=== PATIENT | female | born 1955 | race Caucasian/White ===

== ENCOUNTER → 2020-10-01 10:58 | Outpatient (CLI) | payer MEDICARE, SELFPAY ==
--- NOTE | ~2020-10-01 | DEXA_ITS ---
Bone Density Report Name: María Salvador Age: 65 Sex: Female Ethnicity: White Date of : 1955 Indication: postmenopausal osteoporosis; height loss; prior fracture; Referring Provider: JESUS MANUEL, [facility] Study: Bone densitometry was performed. Exam Date: October 01, 2020 Accession number: [id number] Bone Density: Region BMD T-score Z-score Classification AP Spine (L1-L4) 0.592 -4.1 -2.2 Osteoporosis Femoral Neck (Left) 0.449 -3.6 -1.9 Osteoporosis Total Hip (Left) 0.587 -2.9 -1.5 Osteoporosis Femoral Neck (Right) 0.465 -3.5 -1.8 Osteoporosis Total Hip (Right) 0.556 -3.2 -1.8 Osteoporosis Total Hip Mean 0.572 -3.1 -1.7 Osteoporosis World Health Organization criteria for BMD impression classify patients as: Normal (T-score at or above -1.0), Osteopenia (T-score between -1.0 and -2.5), or Osteoporosis (T-score at or below -2.5). 10-year Fracture Risk: FRAX not reported because: Some T-score for Spine Total or Hip Total or Femoral Neck at or below -2.5 Prior hip or vertebral fracture Previous Exams: Region Exam Age BMD T-score BMD Change BMD Change Date g/cm2 vs Baseline vs Previous AP Spine(L1-L4) 10/01/2020 65 0.592 -4.1 -0.094* -0.055* 04/15/2019 64 0.647 -3.6 -0.040* -0.040* 03/20/2017 62 0.686 -3.3 Total Hip(Left) 10/01/2020 65 0.587 -2.9 -0.107* 0.023 04/15/2019 64 0.565 -3.1 -0.130* -0.130* 03/20/2017 62 0.695 -2.0 Total Hip(Right) 10/01/2020 65 0.556 -3.2 -0.187* 0.024 04/15/2019 64 0.532 -3.4 -0.212* -0.212* 03/20/2017 62 0.743 -1.6 *Denotes significance at 95% confidence level, LSC for AP Spine = 0.022 g/cm2, LSC for Total Hip = 0.027 g/cm2 Clinical Information Provided by Patient: Have had a previous hip or vertebral fracture Has had a low trauma fracture Has used the following medications: Vitamin D, Calcium Patient maximum height was 66.5 Menopause Age: 48 Drinks caffeinated beverages Onset of menses at age 11 Number of children 3 Impression: The patient has established osteoporosis, based on the Total Spine T-score and the existence of a prior fracture. The patient has risk factors, including: previous fracture. The BMD for the AP Spine(L1-L4) decreased, changing by -0.055 since the last DXA exam. Discussion: HIGH RISK OF FRACTURE. BONE DENSITY IS UNDESIRABLY LOW AT ONE OR MORE SKELETAL SITES, CO
== END ==
PROVIDERS: PCP Internal Medicine; Visit Provider Internal Medicine
DX: M81.0 Age-related osteoporosis without current pathological fracture (principal)
CPT/HCPCS: 77080

== ENCOUNTER → 2021-10-10 13:15 | Outpatient (CLI) | payer MEDICARE, SELFPAY ==
--- NOTE | ~2021-10-10 | MM_ITS ---
EXAMINATION: MM screening ho BI w sindi HISTORY: Screening mammogram TECHNIQUE: Craniocaudal and mediolateral oblique 3-D tomosynthesis images were obtained and synthetic 2-D images were generated. CAD analysis was submitted and interpreted. COMPARISON: No prior mammogram is available for comparison at this institution. BREAST PARENCHYMAL COMPOSITION: There are scattered areas of fibroglandular density. FINDINGS: Occasional benign calcifications. There is no evidence of suspicious mass, calcification, o r architectural distortion to suggest malignancy in either breast. IMPRESSION: 1. No mammographic evidence of malignancy. 2. Recommend routine screening mammography in one year. BI-RADS Category 2: Benign finding(s). Reviewed, dictated and finalized at location A.
== END ==
PROVIDERS: Visit Provider Internal Medicine
DX: Z12.31 Encounter for screening mammogram for malignant neoplasm of breast (principal)
CPT/HCPCS: 77063; 77067

== ENCOUNTER 2021-12-16 22:17 | Emergency (ER) | payer MEDICARE, SELFPAY ==
--- NOTE | ~2021-12-16 | XR_ITS ---
XR lumbar spine 2-3V DATE: 12/16/2021 23:35 INDICATION: Left sciatica flareup for 3 days TECHNIQUE: AP, lateral, coned lateral lumbosacral views COMPARISON: 12/12/2018 MR lumbar spine FINDINGS: Diffuse osteopenia. Prominent rotatory levoscoliosis of the lower thoracic and lumbar spine. There is moderate degenerati ve disc disease. Chronic fracture deformities of T12 and L4, present on 12/12/2018 MR lumbar examination. There is prominent degenerative change at the lower lumbar and lumbosacral apophyseal joints with ass ociated grade 1 anterolisthesis at L4-5. The sacroiliac joints are intact. IMPRESSION: Osteopenia Chronic T12 and L4 fracture deformity Prominent rotatory levoscoliosis Mild to moderate degenerative disc disease Degenerative change of the apophyseal joints with associated grade 1 anterolisthesis at L4-5 Reviewed, dictated and finalized at location A. IMPRESSION: Osteopenia Chronic T12 and L4 fracture deformity Prominent rotatory levoscoliosis Mild to moderate degenerative disc disease Degenerative change of the apophyseal joints with associated grade 1 anterolist hesis at L4-5
[2021-12-16 22:24] VITALS: BP 132/64; PULSE 82; RESP 18; TEMP 36.7; O2SAT 97
[2021-12-16] MEDS: MORPHINE SULFATE (*CRX) 4 MG/ML INJ IV PUSH (23:16)
[2021-12-16] MEDS: KETOROLAC 30 MG/ML VIAL (*BKC) IV PUSH (23:17)
--- NOTE | 2021-12-17 01:02 | ED.BACK ---
HPI - Back Pain/Injury General Chief Complaint: Back Pain/Injury Stated Complaint: COMPLICATIONS WITH SCIATICA UNABLE TO AMBULATE Time Seen by Provider: 12/16/21 22:47 History of Present Illness HPI Narrative: Patient is a 66-year-old female who presents ER with low back pain. Reports she cannot walk due to significant pain. She typically ambulates with a walker due to her Parkinson's. She reports she has chronic back pain related to sciatica. She has been going to physical therapy. Reports while at physical therapy a few days ago they pressed on her low back and then she began developing worsening pain over the last 3 days. She has been taking [id number] medications as well as Flexeril without improvement. She has no lower extremity numbness or weakness. No saddle anesthesia or difficulty with urination/defecation. She never felt a pop or tear. No falls. Related Data Allergies Allergy/AdvReac Type Severity Reaction Status Date / Time acyclovir Allergy Rash Verified 12/16/21 22:28 Review of Systems Review of Systems: All systems reviewed & are unremarkable except as noted in HPI and below Constitutional: Constitutional: Denies chills and Denies fever(s) Gastrointestinal: Gastrointestinal: Denies abdominal pain, Denies constipation and Denies nausea Genitourinary: Genitourinary: Denies dysuria and Denies urinary incontinence Musculoskeletal: Musculoskeletal: Reports back pain, Denies arthralgias and Denies joint swelling Neurologic: Denies focal weakness and Denies numbness PMFSH Past Medical History Medical History (Updated 12/17/21 @ 01:10 by Ariel Carrillo MD) Parkinsons disease Scoliosis Surgical History Surgical History (Updated 12/17/21 @ 01:10 by Ariel Carrillo MD) No pertinent past surgical history Exam Narrative: GENERAL: Well-appearing, well-nourished, and in no acute distress. HEAD: Normocephalic, atraumatic. ENT: Mucous membranes moist. CHEST: Clear to auscultation. No respiratory distress. HEART: Regular rate and rhythm. Normal peripheral pulses. EXTREMITIES: Negative straight leg raise. No edema. Back: Deferred due to pain with movement. SKIN: Warm, dry, no rash. NEURO: Resting tremor. Alert and oriented x3. PSYCH: Normal mood and affect. Course Course Emergency Course: Pain now 08/01 after morphine and Toradol. Informed of imaging results. Patient feels comfortable being discharged home. Discussed discontinuation of NSAIDs at home and only taking Tylenol for pain while being on a Medrol Dosepak. Patient verbalized understanding. She also will take her home Flexeril's as needed. Vital Signs Vital signs: Vital Signs Temperature 98.0 F 12/16/21 22:24 Pulse Rate 82 12/16/21 22:24 Respiratory Rate 18 12/16/21 22:24 Blood Pressure 132/64 12/16/21 22:24 Pulse Oximetry 97 12/16/21 22:24 Oxygen Delivery Room Air 12/16/21 22:24 Temperature 98.0 F 12/16/21 22:24 Pulse Rate 82 12/16/21 22:24 Respiratory Rate 18 12/16/21 22:24 Blood Pressure 132/64 12/16/21 22:24 Pulse Oximetry 97 12/16/21 22:24 Oxygen Delivery Room Air 12/16/21 22:24 MDM - Back Pain/Injury Imaging Data My impression: X-ray lumbar: Severe scoliosis without fracture. Discharge Plan Discharge Clinical Impression: Sciatica Patient Disposition: Home, Self-Care Condition: Stable Instructions: Sciatica (ED) Additional Instructions: Return to the ER if you have increased pain in your back, you develop lower extremity weakness/numbness/paralysis, you have numbness or tingling in your private parts, or you are unable to control your ability to urinate/stool. Prescriptions: New methylprednisolone [Medrol (Keith)] 4 mg tablets,dose pack See Rx Instructions .ROUTE .COMPLEX Qty: 21 0RF Rx Instructions: orally per package directions Follow-up/Referrals: Michelle,Wilfred Cloud MD [Primary Care Provider] - 1 Week
[2021-12-17 02:00] VITALS: BP 129/73; PULSE 74; RESP 16; O2SAT 98
== END 2021-12-17 01:38 | disposition home or self-care (01) ==
PROVIDERS: Emergency Provider Emergency Medicine; PCP Internal Medicine
DX: M54.40 Lumbago with sciatica, unspecified side (principal); G20 Parkinson's disease; M41.9 Scoliosis, unspecified
CPT/HCPCS: 72100; 96374; 96375; 99284; J1885; J2270

== ENCOUNTER 2021-12-20 21:06 | Emergency (ER) | payer MEDICARE, SELFPAY ==
--- NOTE | ~2021-12-20 | CT_ITS ---
EXAMINATION: CT lumbar spine wo con DATE: 12/20/2021 23:43 INDICATION: Chronic low back pain. Sciatic nerve pain. TECHNIQUE: Computed tomography (CT) of the lumbar spine was performed without intravenous contrast. A utomated exposure control and iterative reconstruction technique were employed. The dose-length produ ct was 959.68 mGy-cm. COMPARISON: None FINDINGS: 30 degrees lumbar levorotoscoliosis. Sagittal alignment is normal. Unchanged chronic compre ssion fractures at T12 with 40% anterior vertebral body height loss and at L4 with 20% anterior verte bral body height loss. Acute to subacute L5 compression fracture with more diffuse 20% vertebral body height loss. Mild left-sided vertebral body height loss with vacuum phenomena at L5-S1. Mild right-s ided disc height loss from L1-L2 through L4-L5. Small sliding-type hiatal hernia. 2.5 cm cyst in the left hepatic lobe. A couple small nonobstructing stones measuring up to 2-3 mm in the left kidney wit h no hydronephrosis. 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 The following disc levels a re specifically discussed: T11-T12: There is mild left and moderate right facet joint osteoarthritis. There is mild to moderate right neural foraminal stenosis. There is no central canal stenosis. T12-L1: There is mild bilateral facet joint osteoarthritis. There is no neural foraminal stenosis. Th ere is no central canal stenosis. L1-L2: Disc is mildly bulging. There is mild bilateral facet joint osteoarthritis. There is mild to m oderate right neural foraminal stenosis. There is no central canal stenosis. L2-L3: Disc is mildly bulging. There is mild bilateral facet joint osteoarthritis. There is mild righ t and minimal left neural foraminal stenosis. There is mild central canal stenosis. L3-L4: Disc is bulging. There is moderate bilateral facet joint osteoarthritis. There is mild left an d moderate right neural foraminal stenosis. There is moderate central canal stenosis. L4-L5: Disc is bulging. There is moderate right and severe left facet joint osteoarthritis. There is moderate bilateral neural foraminal stenosis. There is mild central canal stenosis. L5-S1: Disc is bulging. There is mild right and severe left facet joint osteoarthritis. There is mild right and severe left neural foraminal stenosis. There is mild central canal stenosis. IMPRESSION: 1. Recent appearing L5 compression fracture with 20% vertebral body height loss. Unchanged chronic T1 2 and L4 compression fractures. 2. 30 degrees lumbar levorotoscoliosis with moderate spondylosis as detailed above. 3. Nonobstructing left nephrolithiasis. 4. Small sliding-type hiatal hernia. Reviewed, dictated and finalized at location B. IMPRESSION: 1. Recent appearing L5 compression fracture with 20% vertebral body height loss . Unchanged chronic T12 and L4 compression fractures. 2. 30 degrees lumbar levorotoscoliosis with moderate spondylosis as detailed ab ove. 3. Nonobstructing left nephrolithiasis. 4. Small sliding-type hiatal hernia.
[2021-12-20 21:09] VITALS: BP 156/78; PULSE 87; RESP 18; TEMP 36.8; O2SAT 100
--- NOTE | 2021-12-20 23:12 | ED.BACK ---
HPI - Back Pain/Injury General Chief Complaint: Back Pain/Injury Stated Complaint: left side pain Time Seen by Provider: 12/20/21 21:55 Source: patient Mode of arrival: ambulatory Limitations: no limitations History of Present Illness HPI Narrative: This is a 66 year old female that presents to the ER for chronic low back pain. Ongoing over the last couple of weeks. Radiates down the left leg. Worse with movement and relieved with rest. Reports history of scoliosis. She has seen a spine surgeon for this issue and was told she was not a surgical candidate. No recent injury or trauma. Denies saddle anesthesia or bowel/bladder incontinence. Related Data Allergies Allergy/AdvReac Type Severity Reaction Status Date / Time acyclovir Allergy Rash Verified 12/16/21 22:28 Review of Systems Review of Systems: CONSTITUTIONAL: Denies fever SKIN: Denies rash MUSCULOSKELETAL: Reports back pain, joint pain, and myalgia. NEUROLOGIC: Denies numbness, or weakness. All systems reviewed & are unremarkable except as noted in HPI and below PMFSH Past Medical History Medical History (Updated 12/21/21 @ 00:37 by Dominga Qureshi PA-C) Parkinsons disease Scoliosis Surgical History Surgical History (Updated 12/17/21 @ 01:10 by Ariel Carrillo MD) No pertinent past surgical history Social History Social History (Updated 12/20/21 @ 23:14 by Dominga Qureshi PA-C) Substance use: never Exam Narrative: GENERAL: Well-appearing, well-nourished, and in no acute distress. HEAD: Normocephalic, atraumatic. EYES: EOMI. CHEST: Clear to auscultation. No respiratory distress. No wheezes rales or rhonchi HEART: Regular rate and rhythm. No murmur heard. Normal peripheral pulses. BACK: No midline spinal tenderness EXTREMITIES: Normal range of motion. No edema. Strength equal in bilateral lower extremities (5/5) SKIN: Warm, dry, no rash. NEURO: No focal deficits. Alert and oriented x3. PSYCH: Normal mood and affect Course Vital Signs Vital signs: Vital Signs Temperature 98.2 F 12/20/21 21:09 Pulse Rate 87 12/20/21 21:09 Respiratory Rate 18 12/20/21 21:09 Blood Pressure 156/78 H 12/20/21 21:09 Pulse Oximetry 100 12/20/21 21:09 Oxygen Delivery Room Air 12/20/21 21:09 Temperature 98.2 F 12/20/21 21:09 Pulse Rate 87 12/20/21 21:09 Respiratory Rate 18 12/20/21 21:09 Blood Pressure 156/78 H 12/20/21 21:09 Pulse Oximetry 100 12/20/21 21:09 Oxygen Delivery Room Air 12/20/21 21:09 MDM - Back Pain/Injury Imaging Data Radiologist's impression: CT lumbar spine STATRAD: Compression deformities of L5 and L4 vertebral bodies, age-indeterminate. Stable superior endplate compression fracture of T12 vertebral body. Degenerative changes of the spine. Severe spinal canal stenosis at L3/4. Mild to moderate spinal canal stenosis at L4/5. Mild right and severe left neuroforaminal stenosis at L5/S1. Moderate right neuroforaminal stenosis at L4/5. Severe right and mild left neuroforaminal stenosis is at L3-4. Scoliosis. Discharge Plan Discharge Clinical Impression: Central stenosis of spinal canal, Compression fracture Chronic low back pain Qualifiers: Back pain laterality: left Sciatica presence: with sciatica Sciatica laterality: sciatica of left side Qualified Code(s): M54.42 - Lumbago with sciatica, left side Scoliosis Qualifiers: Scoliosis type: unspecified scoliosis Spinal region: thoracolumbar Qualified Code(s): M41.9 - Scoliosis, unspecified Patient Disposition: Home, Self-Care Condition: Stable Instructions: Vertebral Compression Fracture (ED), Lumbar Spinal Stenosis (ED), Back Pain (ED) Additional Instructions: Return to the ER if you experience weakness, numbness, bowel/bladder incontinence, or any other symptoms that are concerning to you Rest, use ice/heat, take anti-inflammatories (Aleve, Ibuprofen, Naproxen, etc) or Tylenol as needed for pain as well as prescribed medicat
[2021-12-20] MEDS: KETOROLAC (*BKC) 60 MG/2 ML VIAL IM (23:28)
[2021-12-20] MEDS: HYDROcodone/acetaminophen (*CRX) 5-325 MG TABLET 1 TAB PO (23:28)
[2021-12-21 01:08] VITALS: BP 145/65; PULSE 84; RESP 18; O2SAT 99
== END 2021-12-21 01:09 | disposition home or self-care (01) ==
PROVIDERS: Emergency Provider Emergency Medicine; PCP Internal Medicine
DX: M48.061 Spinal stenosis, lumbar region without neurogenic claudication (principal); M48.54XA Collapsed vertebra, not elsewhere classified, thoracic region, initial encounter for fracture; M54.42 Lumbago with sciatica, left side; M41.9 Scoliosis, unspecified
CPT/HCPCS: 72131; 96372; 99284; A9270; J1885

== ENCOUNTER → 2022-07-18 12:07 | Outpatient (CLI) | payer MEDICARE, SELFPAY ==
--- NOTE | ~2022-07-18 | MR_ITS ---
MRI of the lumbar spine Clinical History: Back pain Technique: Axial T2-weighted images, and sagittal T1-weighted, T2-weighted, and T2 fat-sat images wer e acquired. COMPARISON: 12/12/2018 Findings: There has been interval vertebroplasty of L5, with mild loss of height of this vertebral geeta dy as compared to prior exam. Stable superior endplate depression of L4, without marrow edema. Modera te compression fracture of L3 is present, new from prior exam, but without marrow edema, compatible w ith chronic lesion. Mild compression of L1 is also present, again, without marrow edema, consistent w ith chronic finding. No subluxation evident. No acute bone marrow signal abnormality seen. At L1-L2, there is no disc bulge or herniation. There is minimal facet arthropathy. No spinal canal s tenosis. There is probable moderate right neural foraminal narrowing. Left neural foramen preserved. At L2-L3, there is minimal disc bulge and mild facet arthropathy. No spinal canal stenosis or definit e neural foraminal narrowing. At L3-L4, there is diffuse disc bulge with facet arthropathy, resulting in moderate thecal sac compre ssion. There is moderate to severe right neural foraminal narrowing and moderate left neural foramina l narrowing. At L4-L5, there is diffuse disc bulge with facet arthropathy. There is probable left lateral recess s tenosis. There is mild bilateral neural foraminal narrowing. At L5-S1, there is disc bulge and facet arthropathy. No spinal canal stenosis. There is severe left n eural foraminal narrowing. Right neural foramen preserved. Paravertebral soft tissues are unremarkable. Impression: Multiple chronic compression fractures, as detailed above, with vertebroplasty cement at L5. No acute fracture or subluxation seen. Moderate degenerative spondylosis, as detailed above. There is multifactorial moderate thecal sac com pression L3-L4. There is multilevel neural foraminal narrowing, as detailed above. Reviewed, dictated and finalized at location M. [employer] INST[employer]ER Impression: Multiple chronic compression fractures, as detailed above, with vertebroplasty cement at L5. No acute fracture or subluxation seen. Moderate degenerative spondylosis, as detailed above. There is multifactorial m oderate thecal sac compression L3-L4. There is multilevel neural foraminal narr owing, as detailed above.
--- NOTE | ~2022-07-18 | XR_ITS ---
EXAMINATION: XR lumbar spine min 4V DATE: 07/18/2022 13:49 INDICATION: Dorsalgia, unspecified TECHNIQUE: Anteroposterior and lateral in neutral, flexion and extension views of the lumbar spine, a nd cone-down lateral view of the lumbosacral junction were obtained. COMPARISON: 12/16/2021 FINDINGS: There are 45 degrees of thoracolumbar levoscoliosis. There has been interval vertebroplasty change at L5. There is a stable superior endplate deformity of L4. There are new compression fractur es of L1 and L3. There is a chronic compression fracture of T12. Bone alignment is normal. No hypermo bility is noted with flexion or extension. IMPRESSION: 1. Interval vertebroplasty change at L5, stable superior plate deformity of L4, and new compression f ractures of L1 and L3. Reviewed, dictated and finalized at location L. [employer] SERVICES COORDINATOR IMPRESSION: 1. Interval vertebroplasty change at L5, stable superior plate deformity of L4, and new compression fractures of L1 and L3.
== END ==
PROVIDERS: PCP Internal Medicine; Visit Provider Nurse Practitioner Adult Health
DX: M54.50 Low back pain, unspecified (principal); Z98.890 Other specified postprocedural states; M48.56XA Collapsed vertebra, not elsewhere classified, lumbar region, initial encounter for fracture; M85.88 Other specified disorders of bone density and structure, other site
CPT/HCPCS: 72110; 72148